=== PATIENT | female | born 1980 | race Two or more races ===

== ENCOUNTER 2021-02-27 13:19 | Emergency (ER) | payer OTHER ==
[~2021-02-27] VITALS: Ht 162.6 cm; Wt 59.0 kg
[2021-02-27 15:20] VITALS: BP 118/69
== END 2021-02-27 15:31 | disposition home or self-care (01) ==
LOC: EMS 13:27
DX: F41.9 Anxiety disorder, unspecified (principal); F15.90 Other stimulant use, unspecified, uncomplicated
CPT/HCPCS: 99283; 71045-TC